=== PATIENT | female | born 1995 | race Caucasian/White ===

== ENCOUNTER 2021-11-21 02:12 | Emergency (ER) | payer OTHER, SELFPAY ==
[2021-11-21 02:13] VITALS: BP 155/97; PULSE 91; RESP 16; TEMP 37.1; O2SAT 99; BMI 35.3
--- NOTE | 2021-11-21 02:20 | PC.NURSE ---
ER speaking with pt at this time
--- NOTE | 2021-11-21 02:22 | [facility].EDDENT ---
ED Disposition Clinical Impression: Tooth abscess Disposition: Home, Self-Care Condition on Discharge: Fair Instructions: Tooth Decay, Tooth Abscess Additional Instructions: Follow-up with your dentist in the next 3 to 4 days. You may take [id number] Tylenol and/or Motrin for your pain. Return to the emergency department if you are worse in any way. Referrals: Gillian Connelly [Primary Care Provider] - - Critical Care Critical Care Time: No Attestation: On , the high probability of a clinically significant, sudden or life threatening deterioration of the following system(s) required my full and direct attention, intervention and personal management. The time I documented below is in addition to time spent performing reported procedures but includes the following listed in this critical care notation. Medical Decision Making - Kelvin Inquiry Pt receiving controlled substance: No Vital Signs: 11/21/21 02:13 Temperature 98.8 F Temperature Source Oral Pulse Rate [Left] 91 H Respiratory Rate 16 Blood Pressure [Right Arm] 155/97 H Blood Pressure Mean [Right Arm] 116 02 Sat by Pulse Oximetry 99 Oxygen Delivery Method Room Air Orders (Tests/Meds): ED MEDICATIONS Discontinued Medications Generic Name Dose Route Start Last Admin Trade Name Freq PRN Reason Stop Dose Admin Penicillin G Benzathine 1,200,000 unit 11/21/21 02:23 11/21/21 02:29 Penicillin G Benzathine 1,200,000 Units/2ml Syringe IM 11/21/21 02:24 1,200,000 unit ONCE ONE Administration Medical Decision Narrative: The patient's history and physical examination are consistent with dental caries and a apical abscess. The patient states that she takes Augmentin routinely. However she has been told that she is allergic to penicillin. Penicillin allergy is not likely given the fact that she takes penicillin on a regular basis. I gave her the option of having a prescription for oral medication versus a Bicillin LA shot in the emergency department. Patient has chosen the Bicillin shot. Dental HPI - General Stated complaint: abcess tooth Time Seen by Provider: 11/21/21 02:22 - History of Present Illness HPI Narrative: Patient presents to the emergency department complaining of a right upper molar pain and swelling. She gets this frequently. He takes Augmentin for it. Dates that she was told that she has an allergic reaction to penicillin. However she takes Augmentin regularly. She has no other complaints. - Related Data Home Medications Medication Instructions Recorded Confirmed Lisdexamfetamine Dimesylate 70 mg PO DAILY 11/21/21 11/21/21 [Vyvanse] Allergies Allergy/AdvReac Type Severity Reaction Status Date / Time PENICILLIN Allergy Intermediate Uncoded 05/03/17 14:02 [facility] History - Hepatitis A Screen Drug use history?: No Attestation statement:: This patient has been screened for Hepatitis A risk factors. ROS Obtained: Yes All systems reviewed & no additional complaints Physical Exam - General General appearance: alert, in no apparent distress - Head Head exam: atraumatic, normocephalic, normal inspection - Eye Eye exam: Present: normal appearance, PERRL, EOMI - ENT ENT exam: Present: normal exam, normal oropharynx, mucous membranes moist, TM's normal bilaterally, normal external ear exam, other (There is some swelling and tenderness about the most posterior upper right molar tooth. There is no trismus.) - Neck Neck exam: Present: normal inspection, full ROM, trachea midline. Absent: meningismus, lymphadenopathy - Chest Chest inspection: Present: normal inspection, symmetric chest wall rise. Absent: tenderness - Respiratory Respiratory exam: Present: normal lung sounds bilaterally. Absent: respiratory distress - Cardiovascular Cardiovascular exam: Present: regular rate, normal rhythm. Absent: JVD - Abdominal Exam Abdominal exam: Present: soft, normal bowel soun
[2021-11-21 02:30] VITALS: BP 143/87; PULSE 88; RESP 18; TEMP 37.1; O2SAT 98
== END 2021-11-21 02:50 | disposition home or self-care (01) ==
PROVIDERS: Emergency Provider Emergency Medicine; PCP Family Medicine
DX: K04.7 Periapical abscess without sinus (principal)
CPT/HCPCS: 96372; 99283; J0561